=== PATIENT | male | born 1975 | race African-American/Black ===

== ENCOUNTER 2021-12-26 20:58 | Emergency (ER) | payer SELFPAY ==
[2021-12-26 21:14] VITALS: BP 121/76; PULSE 66; RESP 18; TEMP 98.3; BMI 24.3
== END 2021-12-27 02:21 | disposition home or self-care (01) ==
LOC: JERFT 20:58
DX: M25.572 Pain in left ankle and joints of left foot (principal); R09.81 Nasal congestion
CPT/HCPCS: 0241U-QW; 73610-TC-LT-FY; 73630-TC-LT; 99283-25